=== PATIENT | male | born 1975 | race Caucasian/White ===

== ENCOUNTER 2019-02-02 16:28 | Outpatient (CLI) | payer OTHER ==
--- NOTE | 2019-02-02 18:17 | Ultrasound Report ---
Reason: ANTICOAG MGMT Procedure Date: 02/02/2019 Accession Number: [id number] / [id number] Procedure: US - Duplex Ext Veins Left CPT Code: FULL RESULT: EXAM: LEFT LOWER EXTREMITY VENOUS ULTRASOUND EXAM DATE: 02/02/2019 05:14 PM. CLINICAL HISTORY: Left leg pain. History of popliteal DVT. On Xarelto. COMPARISON: None. TECHNIQUE: Real-time sonographic vascular imaging was performed by the construction driver through the lower extremity utilizing both color-flow and Doppler spectral analysis. Multiple customer contact representative static images were saved for review. FINDINGS: Common Femoral Vein (CFV): Normal. CFV-GSV Junction: Normal. Profunda Femoral Vein (PFV): Normal. Femoral Vein (FV) Prox: Normal. Femoral Vein (FV) Mid: Normal. Femoral Vein (FV) Dist: Normal. Popliteal Vein: Normal. Posterior Tibial Veins: Normal. Peroneal Veins: Normal. Contralateral Side CFV: Normal. Other: None. IMPRESSION: No evidence for deep venous thrombosis. RADIA
== END 2019-02-02 16:29 | disposition home or self-care (01) ==
LOC: DI 16:28
PROVIDERS: ATTEND Internal Medicine
DX: Z79.01 Long term (current) use of anticoagulants (principal)

== ENCOUNTER 2019-10-30 06:58 | Emergency (ER) | payer OTHER ==
[2019-10-30 07:07] VITALS: BP 161/103
--- NOTE | 2019-10-30 07:17 | ED Physician Documentation ---
History of Present Illness - Stated complaint Stated Complaint: BLEEDING FROM MOUTH - Chief complaint Chief Complaint: General - History obtained from History obtained from: Patient, Family - History of Present Illness Timing: Prior to arrival - Additonal information Additional information: Patient with history of clotting disorder and woke up 30 minutes ago with clot in his mouth and blood on pillow. He is on coumadin for past 6 years with a home monitor for his INR, last tested INR 3 weeks ago was 2.9. Still tasting blood. No nosebleed, blood in urine or stool. No excessive bruising. Does have wisdom tooth erupting on left upper ridge. No pain. Has been holding napkin to that area and bleeding has definitely slowed down. Not dizzy. 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 Review of Systems Constitutional: denies: Fever Throat: denies: Dental pain / toothache, Oral lesions / sores Skin: reports: Other (No bruising) PD PAST MEDICAL HISTORY - Past Medical History Cardiovascular: None, Hypertension Respiratory: Asthma, Other Neuro: None Endocrine/Autoimmune: None GI: GERD : None Psych: Anxiety, Panic attacks, Post traumatic stress disorder Musculoskeletal: Chronic back pain Derm: Other - Past Surgical History General: Cholecystectomy - Present Medications Home Medications: Ambulatory Orders Medication Instructions Recorded Confirmed Warfarin Sodium [Coumadin] 10/30/19 - Allergies Allergies/Adverse Reactions: Allergies Allergy/AdvReac Type Severity Reaction Status Date / Time No Known Drug Allergies Allergy Verified 10/30/19 07:04 - Social History Smoking Status: Never smoker PD ED PE NORMAL - Vitals Vital signs reviewed: Yes - General General: Alert and oriented X 3, No acute distress, Well developed/nourished - HEENT HEENT: Atraumatic, PERRL, Moist mucous membranes, Other (L maxillary wisdom tooth erupting and molar ant to that has some blood speckle at gum line. No active bleeding or swelling.) Results - Vitals Vitals: Vital Signs - 24 hr 10/30/19 07:02 Temperature 36.3 C L Heart Rate 107 H Respiratory 18 Rate Blood Pressure 161/103 H O2 Saturation 100 Oxygen O2 Source Room air - Labs Labs: Laboratory Tests 10/30/19 10/30/19 07:25 07:25 WBC 5.5 RBC 4.69 L Hgb 15.1 Hct 44.3 MCV 94.5 H MCH 32.2 H MCHC 34.1 RDW 12.5 Plt Count 216 MPV 10.0 Neut # (Auto) 2.6 Lymph # (Auto) 2.3 Grand # (Auto) 0.5 Eos # (Auto) 0.1 Baso # (Auto) 0.0 Absolute Nucleated RBC 0.00 Nucleated RBC % 0.0 PT 23.5 H INR 2.2 H PD MEDICAL DECISION MAKING - ED course Complexity details: reviewed results, re-evaluated patient, d/w patient, d/w family ED course: INR is 2.2 and his hemoglobin is normal. Discussed results with the patient and on reevaluation he had no further bleeding. He is to be cautious when brushing his teeth and also not eat any foods that might have sharp edges today. Follow-up with the dentist to see if they can elucidate the reason for the bleeding. If the bleeding recurs hold direct pressure and follow-up if the bleeding does not stop. Patient states understanding. Departure - Departure Disposition: 01 Home, Self Care Clinical Impression: Bleeding Condition: Good Instructions: First Aid Bleeding Follow-Up: CHERYL GALLEGOS MD [Primary Care Provider] - Comments: Continue to take your current dosing of Coumadin. Be careful about brushing your teeth vigorously or flossing and avoid foods that have might have sharp edges to irritate the gums. Follow-up with your dentist regarding the bleeding around that molar. If the bleeding recurs apply direct pressure and follow-up if the bleeding is not controlled with the direct pressure.
[2019-10-30 07:33] LABS: BASOPHILS % (AUTO) 0.4 %; EOSINOPHILS # (AUTO) 0.1 10^3/uL (0.0-0.7); EOSINOPHILS % (AUTO) 2.5 %; HGB - HEMOGLOBIN 15.1 g/dL (14.0-18.0); LYMPHOCYTES # (AUTO) 2.3 10^3/uL (1.5-3.5); LYMPHOCYTES % (AUTO) 41.1 %; MEAN CORPUSCULAR HEMOGLOBIN 32.2 pg (27.0-31.0); MEAN CORPUSCULAR HGB CONC 34.1 g/dL (32.0-36.0); MEAN CORPUSCULAR VOLUME 94.5 fL (80.0-94.0); MONOCYTES # (AUTO) 0.5 10^3/uL (0.0-1.0); MONOCYTES % (AUTO) 9.1 %; NEUTROPHILS # (AUTO) 2.6 10^3/uL (1.5-6.6); NEUTROPHILS % (AUTO) 46.5 %; PLT - PLATELET COUNT 216 10^3/uL (130-450); RED BLOOD COUNT 4.69 10^6/uL (4.70-6.10); RED CELL DISTRIBUTION WIDTH 12.5 % (12.0-15.0); WHITE BLOOD COUNT 5.5 x10^3/uL (4.8-10.8)
[2019-10-30 08:07] LABS: INR 2.2 (0.8-1.2); PT - PROTHROMBIN TIME 23.5 secs (9.9-12.6)
== END 2019-10-30 08:44 | disposition home or self-care (01) ==
LOC: ED 06:58
DX: K13.79 Other lesions of oral mucosa (principal); I10 Essential (primary) hypertension; Z79.01 Long term (current) use of anticoagulants
CPT/HCPCS: 36415; 85025; 85610; 99282; 99283

== ENCOUNTER 2020-01-30 08:00 | Outpatient (CLI) | payer OTHER ==
[2020-01-30 12:13] LABS: BASOPHILS % (AUTO) 0.6 %; EOSINOPHILS # (AUTO) 0.1 10^3/uL (0.0-0.7); EOSINOPHILS % (AUTO) 2.1 %; HGB - HEMOGLOBIN 15.3 g/dL (14.0-18.0); LYMPHOCYTES # (AUTO) 1.8 10^3/uL (1.5-3.5); LYMPHOCYTES % (AUTO) 38.4 %; MEAN CORPUSCULAR HEMOGLOBIN 31.6 pg (27.0-31.0); MEAN CORPUSCULAR HGB CONC 33.3 g/dL (32.0-36.0); MEAN CORPUSCULAR VOLUME 94.8 fL (80.0-94.0); MEAN PLATELET VOLUME 10.5 fL (7.4-11.4); MONOCYTES # (AUTO) 0.4 10^3/uL (0.0-1.0); MONOCYTES % (AUTO) 8.2 %; NEUTROPHILS # (AUTO) 2.4 10^3/uL (1.5-6.6); NEUTROPHILS % (AUTO) 50.5 %; PLT - PLATELET COUNT 251 10^3/uL (130-450); RED BLOOD COUNT 4.84 10^6/uL (4.70-6.10); RED CELL DISTRIBUTION WIDTH 12.5 % (12.0-15.0); WHITE BLOOD COUNT 4.7 x10^3/uL (4.8-10.8)
[2020-01-30 12:22] LABS: ALBUMIN 4.3 g/dL (3.2-5.5); ALBUMIN/GLOBULIN RATIO 1.5 (1.0-2.2); CALCIUM 8.9 mg/dL (8.5-10.3); CREATININE 0.8 mg/dL (0.6-1.2); TOTAL PROTEIN 7.1 g/dL (6.7-8.2)
[2020-01-30 12:27] LABS: CHOL/HDL RATIO 4.8 (<5.0); CHOLESTEROL 232 mg/dL; HDL CHOLESTEROL 48 mg/dL; LDL CHOLESTEROL,CALCULATED 157 mg/dL; LDL/HDL RATIO 3.3 (<3.6); VLDL CHOLESTEROL 27 mg/dL
== END 2020-01-30 23:59 | disposition home or self-care (01) ==
LOC: LAB.N 08:00
PROVIDERS: ATTEND Family Medicine
DX: I10 Essential (primary) hypertension (principal); E78.5 Hyperlipidemia, unspecified; R31.9 Hematuria, unspecified
CPT/HCPCS: 36415; 80053; 80061; 83721; 84153; 84443; 85025

== ENCOUNTER 2020-01-30 08:00 | Outpatient (CLI) | payer OTHER ==
[2020-01-30 17:57] LABS: BILIRUBIN,URINE NEGATIVE (NEGATIVE); GLUCOSE, URINE (UA) NEGATIVE (NEGATIVE); KETONES,URINE (UA) NEGATIVE (NEGATIVE); LEUKOCYTE ESTERASE, URINE NEGATIVE (NEGATIVE); NITRITE,URINE NEGATIVE (NEGATIVE); OCCULT BLOOD,URINE TRACE-LYSE (NEGATIVE); PROTEIN,URINE NEGATIVE (NEGATIVE); UROBILINOGEN,URINE 0.2 (NORMAL) E.U./dL (NORMAL)
[2020-01-30 17:58] LABS: CLARITY,URINE CLEAR (CLEAR)
== END 2020-01-30 23:59 | disposition home or self-care (01) ==
LOC: LAB.R 08:00
PROVIDERS: ATTEND Physician Assistant Medical
DX: R31.9 Hematuria, unspecified (principal); I10 Essential (primary) hypertension; E78.5 Hyperlipidemia, unspecified
CPT/HCPCS: 36415; 80053; 80061; 81001; 81003; 84153; 84443; 85025; 87086

== ENCOUNTER 2020-02-08 08:15 | Outpatient (CLI) | payer OTHER | END 2020-02-08 23:59 | disposition home or self-care (01) | LOC: LAB.R 08:15 | PROVIDERS: ATTEND Family Medicine | DX: R31.9 Hematuria, unspecified (principal) | CPT/HCPCS: 87086 ==

== ENCOUNTER 2020-02-21 13:07 | Outpatient (CLI) | payer OTHER ==
[2020-02-21] MEDS ORDERED: IOVERSOL 320 100 ML VIAL IVP ONE ×2 (13:26→15:33)
--- NOTE | 2020-02-22 10:19 | CT Report ---
Reason: HEMATURIA, EPIGASTRIC PAIN Procedure Date: 02/21/2020 Accession Number: [id number] / [id number] Procedure: CT - ABDOMEN/PELVIS W/WO CPT Code: Final Report FULL RESULT: EXAM: CT ABDOMEN AND PELVIS WITHOUT AND WITH CONTRAST (CT IVP) EXAM DATE: 02/21/2020 02:09 PM. CLINICAL HISTORY: Hematuria, epigastric pain. COMPARISONS: None. TECHNIQUE: Routine helical imaging was performed through the kidneys, ureters and bladder in the precontrast, postcontrast and delayed phase. IV Contrast: 100 mL Optiray 320. Reconstructions: Coronal and sagittal. In accordance with CT protocol optimization, one or more of the following dose reduction techniques were utilized for this exam: automated exposure control, adjustment of mA and/or KV based on patient size, or use of iterative reconstructive technique. FINDINGS: Lung Bases: Unremarkable. Liver: Normal. No masses. Gallbladder/Bile Ducts: Previous cholecystectomy. No biliary ductal dilatation identified. Spleen: Normal. Pancreas: Normal. Adrenal Glands: Normal. Kidneys/Bladder: Right Kidney/Ureter: No renal or ureteral stones. No hydronephrosis or hydroureter. No masses. Left Kidney/Ureter: No renal or ureteral stones. No hydronephrosis or hydroureter. No masses. Bladder: No stones. No wall thickening or mass. Peritoneal Cavity/Bowel: Normal. No free fluid, free air or adenopathy. No masses or acute inflammatory process. Pelvic Organs: Visualized pelvic organs are unremarkable. Vasculature: No aneurysms or other significant abnormality. Bones: No significant abnormality. Other: None. IMPRESSION: Normal CT IVP. No urinary tract masses, stones or obstruction. RADIA
== END 2020-02-21 13:08 | disposition home or self-care (01) ==
LOC: DI 13:07
PROVIDERS: ATTEND Family Medicine
DX: R31.9 Hematuria, unspecified (principal); R10.13 Epigastric pain
CPT/HCPCS: 74178; Q9967

== ENCOUNTER 2020-09-25 09:39 | Outpatient (CLI) | payer OTHER ==
[2020-09-25] MEDS ORDERED: IOVERSOL 320 50 ML VIAL ONE (09:52)
[2020-09-25] MEDS ORDERED: IOVERSOL 320 100 ML VIAL IVP ONE (09:52)
[2020-09-25 10:05] LABS: CREATININE 0.9 mg/dL (0.6-1.2)
--- NOTE | 2020-09-25 12:44 | CT Report ---
PROCEDURE: Abdomen/Pelvis W INDICATIONS: RT GROIN PAIN CONTRAST: IV CONTRAST: Optiray 320 ml: 100 PO CONTRAST: Optiray 320 ml50 TECHNIQUE: After the administration of intravenous and oral contrast, 5 mm thick sections acquired from the diap hragms to the symphysis. 5 mm thick coronal and sagittal reformats were acquired. For radiation dos e reduction, the following was used: automated exposure control, adjustment of mA and/or kV accordin g to patient size. COMPARISON: 02/21/2020. FINDINGS: Image quality: Excellent. ABDOMEN: Lung bases: Lung bases are clear. Heart size is normal. Solid organs: Liver and spleen are normal in size and enhancement. Gallbladder has been surgically removed. Biliary system is non dilated. Pancreas enhances normally. No adrenal nodules. Kidneys d emonstrate normal size and enhancement, without hydronephrosis. Peritoneum and bowel: A few scattered colonic diverticula without acute inflammation. Normal appendi x. Bowel loops demonstrate normal wall thickness and caliber. No free fluid or air. Nodes and vessels: No retroperitoneal or mesenteric adenopathy by size criteria. Aorta and inferior vena cava are normal in size. Miscellaneous: No ventral hernias. Small fat-containing umbilical hernia without acute inflammation. PELVIS: Genitourinary: Urinary bladder wall thickness is normal for degree of distention. Reproductive organs appear unremarkable as imaged. Miscellaneous: Very small fat-containing left inguinal hernia without acute inflammation. No pelvic adenopathy. Bones: No suspicious bony lesions. No acute vertebral body compression fractures. IMPRESSION: 1. Very small fat-containing left inguinal hernia without acute inflammation. 2. Small fat-containing umbilical hernia without acute inflammation. 3. Scattered colonic diverticulosis without acute diverticulitis. 4. Status post cholecystectomy. 5. Normal appendix. Reviewed by: Alex Pepper MD on 09/25/2020 12:43 PM PST Approved by: Alex Pepper MD on 09/25/2020 12:43 PM PST Station ID: [id number]
[2020-09-25] MEDS: IOVERSOL 320 50 ML VIAL PO ONE (13:14)
[2020-09-25] MEDS: IOVERSOL 320 100 ML VIAL IVP ONE (13:15)
== END 2020-09-25 09:40 | disposition home or self-care (01) ==
LOC: LAB 09:39 → DI 09:40
PROVIDERS: ATTEND Surgery
DX: R10.31 Right lower quadrant pain (principal); K40.90 Unilateral inguinal hernia, without obstruction or gangrene, not specified as recurrent; K42.9 Umbilical hernia without obstruction or gangrene; K57.30 Diverticulosis of large intestine without perforation or abscess without bleeding; Z90.49 Acquired absence of other specified parts of digestive tract
CPT/HCPCS: 36415; 74177; 82565; Q9967

== ENCOUNTER 2021-06-24 11:32 | Outpatient (CLI) | payer OTHER ==
--- NOTE | 2021-06-24 13:19 | XRAY Report ---
PROCEDURE: Elbow 3 View LT INDICATIONS: L ELBOW PX TECHNIQUE: 3 views of the elbow were acquired. COMPARISON: None FINDINGS: Bones: No fractures or dislocations. No suspicious bony lesions. Soft tissues: No elbow joint effusion. No suspicious soft tissue calcifications. IMPRESSION: No fracture. No osseous lesion. If there are persistent symptoms or continued clinical concern for pa thology, then repeat plain film radiographs (7-10 days) or advanced imaging (CT, MR, bone scan) shoul d be considered for further evaluation. Reviewed by: Marissa Medina MD, PhD on 06/24/2021 1:18 PM PDT Approved by: Marissa Medina MD, PhD on 06/24/2021 1:18 PM PDT Station ID: [id number]
== END 2021-06-24 23:59 | disposition home or self-care (01) ==
LOC: DI.N 11:32
PROVIDERS: ATTEND Family Medicine
DX: M25.522 Pain in left elbow (principal)

== ENCOUNTER 2021-07-12 13:16 | Outpatient (CLI) | payer OTHER ==
--- NOTE | 2021-07-12 19:40 | Ultrasound Report ---
PROCEDURE: Testicle INDICATIONS: RIGHT TESTICULAR PAIN TECHNIQUE: Real-time scanning was performed of the scrotum and testicles, with image documentation. Color and p ulse Doppler interrogation was performed of both testicles. COMPARISON: None. FINDINGS: Right: Testicle is normal in size at 4.7 x 1.6 x 2.9 cm, and homogenous in echotexture. The right ep ididymis and right epididymal tail demonstrates increased vascularity suggestive of epididymitis. The re is a small right hydrocele. Within the testicle there is a 4 mm hypoechoic area which has the appe arance of shadowing. Overlying scrotal skin is normal in thickness. Left: Testicle is normal in size at 4.5 x 1.6 x 2.9 cm, and homogeneous in echotexture. Epididymis is normal in overall size and morphology. The left testicle has a 2 mm calcification. The left epidi dymal head has a cyst. No hydrocele or varicoceles. Overlying scrotal skin is normal in thickness. Doppler: Color and pulse Doppler demonstrate normal and symmetric arterial flow in both testicles. IMPRESSION: 1. Hypervascularity of the right epididymitis and a small right hydrocele with debris consistent with right epididymitis. 2. The right epididymis has a hypoechoic area which measures 4 mm which is indeterminate. This could be shadowing from a calcification, however a neoplasm cannot be completely excluded. Recommend follow -up testicular ultrasound in 1 month after treatment for epididymitis. Reviewed by: Andres Carbajal on 07/12/2021 7:38 PM PDT Approved by: Andres Carbajal on 07/12/2021 7:38 PM PDT Station ID: [id number]
== END 2021-07-12 13:17 | disposition home or self-care (01) ==
LOC: DI 13:16
PROVIDERS: ATTEND Surgery
DX: N45.1 Epididymitis (principal); R93.89 Abnormal findings on diagnostic imaging of other specified body structures

== ENCOUNTER 2021-10-10 08:00 | Outpatient (CLI) | payer OTHER ==
[2021-10-10 12:08] LABS: BASOPHILS % (AUTO) 0.5 %; EOSINOPHILS # (AUTO) 0.1 10^3/uL (0.0-0.7); HCT - HEMATOCRIT 45.5 % (42.0-52.0); HGB - HEMOGLOBIN 15.6 g/dL (14.0-18.0); LYMPHOCYTES % (AUTO) 36.3 %; MEAN CORPUSCULAR HEMOGLOBIN 32.4 pg (27.0-31.0); MEAN CORPUSCULAR HGB CONC 34.3 g/dL (32.0-36.0); MEAN CORPUSCULAR VOLUME 94.4 fL (80.0-94.0); MEAN PLATELET VOLUME 10.3 fL (7.4-11.4); MONOCYTES # (AUTO) 0.5 10^3/uL (0.0-1.0); MONOCYTES % (AUTO) 9.3 %; NEUTROPHILS # (AUTO) 2.8 10^3/uL (1.5-6.6); NEUTROPHILS % (AUTO) 51.7 %; PLT - PLATELET COUNT 248 10^3/uL (130-450); RED BLOOD COUNT 4.82 10^6/uL (4.70-6.10); RED CELL DISTRIBUTION WIDTH 12.1 % (12.0-15.0); WHITE BLOOD COUNT 5.5 x10^3/uL (4.8-10.8)
[2021-10-10 13:05] LABS: THYROID STIMULATING HORMONE 2.61 uIU/mL (0.34-5.60)
[2021-10-10 13:27] LABS: ALBUMIN 4.1 g/dL (3.2-5.5); ALBUMIN/GLOBULIN RATIO 1.3 (1.0-2.2); ALKALINE PHOSPHATASE 61 IU/L (42-121); ALT ALANINE AMINOTRANSFERASE 42 IU/L (10-60); AST ASPARTATE AMINOTRANSFERASE 32 IU/L (10-42); BILIRUBIN,TOTAL 1.1 mg/dL (0.2-1.0); BUN - BLOOD UREA NITROGEN 15 mg/dL (6-20); CALCIUM 9.2 mg/dL (8.5-10.3); CARBON DIOXIDE - CO2 25 mmol/L (21-32); CHLORIDE 101 mmol/L (101-111); CHOL/HDL RATIO 4.7 (<5.0); CHOLESTEROL 255 mg/dL; CREATININE 0.8 mg/dL (0.6-1.2); GFR - MDRD 105 (>89); GLUCOSE 101 mg/dL (70-100); HDL CHOLESTEROL 54 mg/dL; LDL CHOLESTEROL,CALCULATED 161 mg/dL; SODIUM 135 mmol/L (135-145); TOTAL PROTEIN 7.3 g/dL (6.7-8.2); TRIGLYCERIDES 202 mg/dL; VLDL CHOLESTEROL 40 mg/dL
[2021-10-10 14:16] LABS: CRP - C-REACTIVE PROTEIN < 1.0 mg/dL (0-1.0)
[2021-10-10 15:58] LABS: RHEUMATOID FACTOR NEGATIVE (Negative)
[2021-10-12 16:36] LABS: ANA SCREEN NEGATIVE (NEGATIVE)
== END 2021-10-10 23:59 | disposition home or self-care (01) ==
LOC: LAB.WCP 08:00
PROVIDERS: ATTEND Internal Medicine
DX: I10 Essential (primary) hypertension (principal); E78.5 Hyperlipidemia, unspecified; M25.50 Pain in unspecified joint
CPT/HCPCS: 36415; 80053; 80061; 83721; 84443; 85025; 85651; 86038; 86140; 86200; 86430

== ENCOUNTER 2022-08-28 09:18 | Outpatient (CLI) | payer OTHER ==
[2022-08-28 12:00] LABS: BASOPHILS % (AUTO) 0.5 %; EOSINOPHILS # (AUTO) 0.1 10^3/uL (0.0-0.7); EOSINOPHILS % (AUTO) 2.1 %; HCT - HEMATOCRIT 46.8 % (42.0-52.0); MEAN CORPUSCULAR HEMOGLOBIN 32.1 pg (27.0-31.0); MEAN CORPUSCULAR HGB CONC 34.2 g/dL (32.0-36.0); MEAN CORPUSCULAR VOLUME 93.8 fL (80.0-94.0); MEAN PLATELET VOLUME 10.3 fL (7.4-11.4); MONOCYTES # (AUTO) 0.5 10^3/uL (0.0-1.0); MONOCYTES % (AUTO) 7.8 %; NEUTROPHILS # (AUTO) 3.2 10^3/uL (1.5-6.6); NEUTROPHILS % (AUTO) 55.3 %; PLT - PLATELET COUNT 262 10^3/uL (130-450); RED BLOOD COUNT 4.99 10^6/uL (4.70-6.10); RED CELL DISTRIBUTION WIDTH 12.6 % (12.0-15.0); WHITE BLOOD COUNT 5.7 x10^3/uL (4.8-10.8)
[2022-08-28 12:46] LABS: ESTIMATED AVERAGE GLUCOSE 105 mg/dL (70-100); HEMOGLOBIN A1c% 5.3 % (4.27-6.07)
[2022-08-28 12:53] LABS: THYROID STIMULATING HORMONE 2.44 uIU/mL (0.34-5.60)
[2022-08-28 12:58] LABS: ALBUMIN 4.5 g/dL (3.2-5.5); ALBUMIN/GLOBULIN RATIO 1.5 (1.0-2.2); ALKALINE PHOSPHATASE 77 IU/L (42-121); ALT ALANINE AMINOTRANSFERASE 29 IU/L (10-60); AST ASPARTATE AMINOTRANSFERASE 26 IU/L (10-42); BUN - BLOOD UREA NITROGEN 13 mg/dL (6-20); CALCIUM 9.7 mg/dL (8.5-10.3); CARBON DIOXIDE - CO2 30 mmol/L (21-32); CHLORIDE 101 mmol/L (101-111); CHOL/HDL RATIO 5.1 (<5.0); CHOLESTEROL 270 mg/dL; CREATININE 0.8 mg/dL (0.6-1.2); GFR - MDRD 105 (>89); GLUCOSE 99 mg/dL (70-100); HDL CHOLESTEROL 53 mg/dL; LDL CHOLESTEROL,CALCULATED 172 mg/dL; LDL/HDL RATIO 3.2 (<3.6); POTASSIUM 4.6 mmol/L (3.5-5.0); SODIUM 138 mmol/L (135-145); TOTAL PROTEIN 7.5 g/dL (6.7-8.2); TRIGLYCERIDES 226 mg/dL; VLDL CHOLESTEROL 45 mg/dL
== END 2022-08-28 09:19 | disposition home or self-care (01) ==
LOC: LAB.N 09:18
PROVIDERS: ATTEND Internal Medicine
DX: D68.9 Coagulation defect, unspecified (principal); E78.5 Hyperlipidemia, unspecified; R73.01 Impaired fasting glucose; R10.2 Pelvic and perineal pain; F41.9 Anxiety disorder, unspecified
CPT/HCPCS: 36415; 80053; 80061; 83036; 83721; 84153; 84443; 85025

== ENCOUNTER 2022-10-29 01:35 | Emergency (ER) | payer OTHER ==
[2022-10-29] MEDS ORDERED: ACETAMINOPHEN 325 MG TABLET PO STA (02:07)
--- NOTE | 2022-10-29 02:10 | ED Physician Documentation ---
History of Present Illness - Stated complaint Stated Complaint: HEADACHE - Chief complaint Chief Complaint: Neuro - History obtained from History obtained from: Patient - Additonal information Additional information: 47yM with pmh PE on coumadin p/w a couple weeks of constant aching/throbbing gradual onset R sided headache radiating from temporal area to back of neck, improving with tylenol. denies fever, cough, sore throat, fnd. did have some congestion/rhinorrhea recently. Review of Systems Ten Systems: 10 systems reviewed and negative GI: reports: Nausea Neurologic: reports: Headache. denies: Focal weakness, Numbness, Difficulty speaking PD PAST MEDICAL HISTORY - Past Medical History Past Medical History: Yes Cardiovascular: None, Hypertension, Pulmonary embolism Respiratory: Asthma, Other Neuro: None Endocrine/Autoimmune: None GI: GERD : None HEENT: Chronic sinusitis Psych: Anxiety, Panic attacks, Post traumatic stress disorder Musculoskeletal: Chronic back pain Derm: None, Other Other Past Medical History: Venous blood clotting disorder - Past Surgical History Past Surgical History: Yes General: Cholecystectomy, Other Cardiovascular: Cardiac catheterization - Present Medications Home Medications: Ambulatory Orders Medication Instructions Recorded Confirmed Enoxaparin [Lovenox] 120 mg SUBQ Q12H PRN 07/31/21 10/29/22 Fluticasone [Flonase] 1 spray JIE DAILY PRN 07/31/21 10/29/22 Pantoprazole [Protonix] 40 mg PO DAILY 07/31/21 10/29/22 Warfarin [Coumadin] 5 mg PO DAILY 07/31/21 10/29/22 lisinopriL [Zestril] 5 mg PO DAILY 07/31/21 10/29/22 Gabapentin [Gralise] 300 mg PO BID 10/29/22 10/29/22 - Allergies Allergies/Adverse Reactions: Allergies Allergy/AdvReac Type Severity Reaction Status Date / Time No Known Drug Allergies Allergy Verified 10/29/22 01:47 - Social History Does the pt smoke?: No Smoking Status: Never smoker Does the pt drink ETOH?: Yes ETOH Use: Liquor Does the pt have substance abuse?: No - Immunizations Immunizations are current?: Yes - POLST Patient has POLST: No PD ED PE NORMAL - Vitals Vital signs reviewed: Yes - General General: Alert and oriented X 3, No acute distress, Well developed/nourished - HEENT HEENT: Atraumatic, PERRL, EOMI, Moist mucous membranes, Pharynx benign - Neck Neck: Supple, no meningeal sign - Cardiac Cardiac: RRR - Respiratory Respiratory: No respiratory distress, Clear bilaterally - Abdomen Abdomen: Non tender, Non distended - Derm Derm: Normal color, Warm and dry - Extremities Extremities: No deformity - Neuro Neuro: Alert and oriented X 3, access service representative 2-12 intact, No motor deficit, No sensory deficit, Normal speech Eye Opening: Spontaneous Motor: Obeys Commands Verbal: Oriented GCS Score: 15 - Psych Psych: Normal mood, Normal affect Results - Vitals Vitals: Vital Signs - 24 hr 10/29/22 10/29/22 01:39 03:06 Temperature 36.8 C Heart Rate 66 58 L Respiratory 16 16 Rate Blood Pressure 132/87 H O2 Saturation 99 96 Oxygen O2 Source Room air PD Medical Decision Making - ED course ED course: 47yM p/w headache X several weeks. noncontrast CT head ordered. symptomatic care provided. will reassess. ED physician CT head wet read normal. patient sleeping comfortably on reexam. on waking he states headache has resolved. plan to dc home to f/u with pcp. return precautions given. Departure - Departure Disposition: Home, Self Care Clinical Impression: Tension headache Condition: Good Instructions: ED Headache Tension Comments: You are seen in the emergency department for headache. Your CT was normal. Please follow-up with your primary care provider. Return to the emergency department if you have any new or worsening symptoms or other concerns.
[2022-10-29] MEDS ORDERED: KETOROLAC 30 MG/ML VIAL IM STA (03:41)
[2022-10-29 03:43] VITALS: BP 109/74
--- NOTE | 2022-10-29 08:11 | CT Report ---
PROCEDURE: HEAD WO INDICATIONS: headache TECHNIQUE: Noncontrast 4.5 mm thick angled axial sections acquired from the foramen magnum to the vertex. For r adiation dose reduction, the following was used: automated exposure control, adjustment of mA and/or kV according to patient size. COMPARISON: None. FINDINGS: Image quality: Excellent. CSF spaces: Basal cisterns are patent. No extra-axial fluid collections. Ventricles are normal in size and shape. Brain: No midline shift. No intracranial masses or hemorrhage. Cotto-white matter interface is norm al. Skull and face: Calvarium and visualized facial bones are intact, without suspicious lesions. Sinuses: Retention cyst versus polyp is noted in right ethmoid sinus. Rest of the visualized sinuses and mastoids are clear. IMPRESSION: 1. No CT evidence of acute intracranial abnormalities. 2. Right ethmoid sinusitis versus retention cyst or polyp. No discrepancies. Reviewed by: Derick Kessler MD on 10/29/2022 8:09 AM [facility] Approved by: Derick Kessler MD on 10/29/2022 8:09 AM [facility] Station ID: [id number]
== END 2022-10-29 03:53 | disposition home or self-care (01) ==
LOC: ED 01:35
DX: G44.209 Tension-type headache, unspecified, not intractable (principal)
CPT/HCPCS: 70450; 96372; 99282; 99284; A9270

== ENCOUNTER 2023-04-20 15:41 | Emergency (ER) | payer OTHER ==
[2023-04-20] MEDS ORDERED: SODIUM CHLORIDE 0.9% 1,000 ML IV STA (15:59)
[2023-04-20 16:09] LABS: BASOPHILS % (AUTO) 0.3 %; EOSINOPHILS # (AUTO) 0.2 10^3/uL (0.0-0.7); EOSINOPHILS % (AUTO) 1.4 %; HCT - HEMATOCRIT 44.7 % (42.0-52.0); HGB - HEMOGLOBIN 15.2 g/dL (14.0-18.0); LYMPHOCYTES # (AUTO) 1.6 10^3/uL (1.5-3.5); MEAN CORPUSCULAR HEMOGLOBIN 32.1 pg (27.0-31.0); MEAN CORPUSCULAR VOLUME 94.3 fL (80.0-94.0); MEAN PLATELET VOLUME 9.7 fL (7.4-11.4); MONOCYTES % (AUTO) 8.4 %; NEUTROPHILS # (AUTO) 9.3 10^3/uL (1.5-6.6); NEUTROPHILS % (AUTO) 76.6 %; PLT - PLATELET COUNT 254 10^3/uL (130-450); RED BLOOD COUNT 4.74 10^6/uL (4.70-6.10); RED CELL DISTRIBUTION WIDTH 12.1 % (12.0-15.0); WHITE BLOOD COUNT 12.1 x10^3/uL (4.8-10.8)
--- NOTE | 2023-04-20 16:10 | ED Physician Documentation ---
History of Present Illness - Stated complaint Stated Complaint: POST OP PX/FEVER - Chief complaint Chief Complaint: Fever - History obtained from History obtained from: Patient, Family - Additonal information Additional information: 48-year-old male with a history of a PE and clotting disorder, on chronic warfarin, Hypertension, and he recently underwent a bilateral inguinal hernia repair surgery over at [facility] in [place]. He had surgery on April 15. Have been doing well postop for a couple of days and felt like he was having some brain fog and felt chilled. He rested for couple days and yesterday had a little bit of increased activity due to Father's Day but nothing strenuous. Today hefelt some increased soreness in the inguinal area bilaterally, but attributed it to increased activity yesterday. He required more assistance getting off the couch according to . He just continued to not feel great so he took his temperature today and stated that it was 102. He took a gram of Tylenol about an hour prior to arrival and came to the ER. He states he has not had any cough or URI symptoms, no chest pain or difficulty breathing, no nausea, vomiting, Or constipation. He does have some loose stools but states he is on stool softeners due to the narcotics. He denies any dysuria urgency or frequency, no flank pain. He is on a Lovenox bridge but has restarted his Couma din, restarted 2 days ago. PD PAST MEDICAL HISTORY - Past Medical History Past Medical History: Yes Cardiovascular: None, Hypertension, Pulmonary embolism Respiratory: Asthma, Other Neuro: None Endocrine/Autoimmune: None GI: GERD : None HEENT: Chronic sinusitis Psych: Anxiety, Panic attacks, Post traumatic stress disorder Musculoskeletal: Chronic back pain Derm: None, Other - Past Surgical History Past Surgical History: Yes General: Cholecystectomy, Other Cardiovascular: Cardiac catheterization - Present Medications Home Medications: Ambulatory Orders Medication Instructions Recorded Confirmed Enoxaparin [Lovenox] 120 mg SUBQ Q12H PRN 07/31/21 04/20/23 Fluticasone [Flonase] 1 spray JIE DAILY PRN 07/31/21 04/20/23 Pantoprazole [Protonix] 40 mg PO DAILY 07/31/21 04/20/23 Warfarin [Coumadin] 5 mg PO DAILY 07/31/21 04/20/23 lisinopriL [Zestril] 5 mg PO DAILY 07/31/21 04/20/23 Gabapentin [Gralise] 300 mg PO BID 10/29/22 04/20/23 Senna [Senokot] 8.6 mg PO DAILY 04/20/23 04/20/23 cephALEXin [Keflex] 500 mg PO Q6H #28 cap 04/20/23 oxyCODONE [Roxicodone] 5 mg PO Q6HR PRN 04/20/23 04/20/23 polyethylene glycoL 3350 [Miralax] 17 gm PO BID 04/20/23 04/20/23 - Allergies Allergies/Adverse Reactions: Allergies Allergy/AdvReac Type Severity Reaction Status Date / Time No Known Drug Allergies Allergy Verified 04/20/23 15:43 - Social History Does the pt smoke?: No Smoking Status: Never smoker Does the pt drink ETOH?: Yes Does the pt have substance abuse?: No - Immunizations Immunizations are current?: Yes - POLST Patient has POLST: No PD ED PE NORMAL - Vitals Vital signs reviewed: Yes - General General: Alert and oriented X 3, No acute distress, Well developed/nourished - HEENT HEENT: Atraumatic, Moist mucous membranes, Pharynx benign - Neck Neck: Supple, no meningeal sign, No JVD - Cardiac Cardiac: RRR, No murmur, No gallop, No rub - Respiratory Respiratory: No respiratory distress, Clear bilaterally - Abdomen Abdomen: Normal bowel sounds, Other (Bruising across the lower abdomen at site of Lovenox shots, there are 3 lap sites across the mid abdomen that have Steri- Strips on them, there is generalized tenderness around these but no erythema or swelling, no palpable abscess. There is significant tenderness in the inguinal region bilaterally ) - Back Back: No CVA TTP, No spinal TTP - Derm Derm: Normal color, Warm and dry, No rash, Other (Ecchymosis to abdomen) - Extremities Extremities: No deformity, No edema - Neuro Neuro: Alert and oriented X 3 Eye Opening: Spontaneous Motor: Obeys Commands Verbal: Oriented GCS Score: 15 - Psych Psych: Normal mood, Normal affect Results - Vitals Vitals: Vital Signs - 24 hr 04/20/23 04/20/23 15:43 16:52 Temperature 37.7 C Heart Rate 115 H 102 H Respiratory 18 20 Rate Blood Pressure 130/84 H 139/88 H O2 Saturation 98 98 Oxygen O2 Source Room air - Labs Labs: Laboratory Tests 04/20/23 04/20/23 04/20/23 16:01 16:01 16:01 WBC 12.1 H RBC 4.74 Hgb 15.2 Hct 44.7 MCV 94.3 H MCH 32.1 H MCHC 34.0 RDW 12.1 Plt Count 254 MPV 9.7 Neut # (Auto) 9.3 H Lymph # (Auto) 1.6 [place] # (Auto) 1.0 Eos # (Auto) 0.2 Baso # (Auto) 0.0 Absolute Nucleated RBC 0.00 Nucleated RBC % 0.0 PT 12.3 INR 1.1 Sodium 136 Potassium 4.0 Chloride 101 Carbon Dioxide 28 Anion Gap 7.0 BUN 10 Creatinine 0.8 Estimated GFR (MDRD) 104 Glucose 126 H Lactic Acid Calcium 9.0 Total Bilirubin 0.7 AST 85 H ALT 138 H Alkaline Phosphatase 137 H Total Protein 7.3 Albumin 3.8 Globulin 3.5 Albumin/Globulin Ratio 1.1 Urine Color Urine Clarity Urine pH Ur Specific [place] Urine Protein Urine Glucose (UA) Urine Ketones Urine Occult Blood Urine Nitrite Urine Bilirubin Urine Urobilinogen Ur Leukocyte Esterase Urine RBC Urine WBC Ur Squamous Epith Cells Urine Bacteria Urine Culture Comments 04/20/23 04/20/23 16:23 16:36 WBC RBC Hgb Hct MCV MCH MCHC RDW Plt Count MPV Neut # (Auto) Lymph # (Auto) [place] # (Auto) Eos # (Auto) Baso # (Auto) Absolute Nucleated RBC Nucleated RBC % PT INR Sodium Potassium Chloride Carbon Dioxide Anion Gap BUN Creatinine Estimated GFR (MDRD) Glucose Lactic Acid 1.2 Calcium Total Bilirubin AST ALT Alkaline Phosphatase Total Protein Albumin Globulin Albumin/Globulin Ratio Urine Color YELLOW Urine Clarity CLEAR Urine pH 6.5 Ur Specific [place] <=1.005 Urine Protein NEGATIVE Urine Glucose (UA) NEGATIVE Urine Ketones NEGATIVE Urine Occult Blood NEGATIVE Urine Nitrite NEGATIVE Urine Bilirubin NEGATIVE Urine Urobilinogen 0.2 (NORMAL) Ur Leukocyte Esterase NEGATIVE Urine RBC None Seen Urine WBC 0-3 Ur Squamous Epith Cells NONE SEEN Urine Bacteria None Seen Urine Culture Comments NOT INDICATED - Rads (name of study) No standard instances Relevant Findings:: Final report received PD Medical Decision Making - ED course Complexity details: reviewed old records, reviewed results, re-evaluated patient, considered differential, d/w patient, d/w family ED course: 48-year-old male who presented with fever and generally feeling unwell for the last several days. He is 5 days post bilateral inguinal hernia repair. He has been giving himself subcutaneous injections of Lovenox perioperatively while bridging to Coumadin. On exam today, the patient is well-appearing though in the tachycardic, afebrile here though had antipyretics prior to arrival and reported a fever at home. He has some generalized abdominal tenderness post inguinal hernia repair however incisions appear to be healing well. There was concern for possible postoperative abscess or other postoperative infection and obtain a sepsis work-up given patient's tachycardia and reported fever. He does have a mild leukocytosis at 12.1, and mild elevation in his LFTs however his other labs are stable. His urinalysis is negative for infection. Chest x-ray is negative. He was given 1 L of IV fluids However lactate is normal and he has not been hypotensive here therefore additional fluid Resuscitation not indicated. There were no other obvious sources of infection therefore did proceed with a CT scan to evaluate for possible postoperative abscess or other signs of infection and this does show some subcutaneous fat stranding consistent with cellulitis but no focal fluid collection or drainable abscess. I therefore started patient on ceftriaxone, 2 g, IV. He is well-appearing with otherwise fairly stable labs and vital signs therefore I do think he is safe for dismissal home and will continue Keflex 4 times a day at home to treat cellulitis. He was given strict return precautions however if he had increasing pain, persistent fever, nausea and vomiting and unable to tolerate p.o. or other new concerns. Patient does have some mild elevation in his LFTs which can be due to the infection and recent surgery, he does not have any signs of acute cholecystitis or other infection on physical exam or CT scan. Therefore was advised to follow-up with his PCP to trend his LFTs. Departure - Departure Disposition: 01 Home, Self Care Clinical Impression: Abdominal wall cellulitis, Elevated liver enzymes Condition: Good Instructions: Cellulitis Dc Prescriptions: cephALEXin [Keflex] 500 mg PO Q6H #28 cap Comments: Your CT scan showed signs of infection under the skin called a cellulitis. This may be due to surgery or possibly due to the subcutaneous injections that you have been giving. We treat this with antibiotics, you received a full dose of antibiotics here in the ER today and can start the oral antibiotics tomorrow morning. You may take Tylenol as needed for pain or fever. Symptoms should improve relatively quickly once on antibiotics so if you are not having significant improvement in the next 2 to 3 days or if it anytime you are having worsening symptoms, please return to the ER.
[2023-04-20] MEDS ORDERED: iohexoL-300 100 ML VIAL ONE (16:16)
--- NOTE | 2023-04-20 16:19 | XRAY Report ---
PROCEDURE: Chest 1 View X-Ray INDICATIONS: Sepsis TECHNIQUE: One view of the chest was acquired. COMPARISON: None. FINDINGS: Surgical changes and devices: None. Lungs and pleura: No pleural effusions or pneumothorax. Lungs are clear. Mediastinum: Mediastinal contours appear normal. Heart size is normal. Bones and chest wall: No suspicious bony lesions. Overlying soft tissues appear unremarkable. IMPRESSION: No acute cardiopulmonary process. Reviewed by: Lyly Lovelace MD on 04/20/2023 4:18 PM PDT Approved by: Lyly Lovelace MD on 04/20/2023 4:18 PM PDT Station ID: [id number]
[2023-04-20 16:24] LABS: ALBUMIN 3.8 g/dL (3.2-5.5); ALBUMIN/GLOBULIN RATIO 1.1 (1.0-2.2); BILIRUBIN,TOTAL 0.7 mg/dL (0.2-1.0); CREATININE 0.8 mg/dL (0.6-1.2); TOTAL PROTEIN 7.3 g/dL (6.7-8.2)
[2023-04-20 16:30] LABS: INR 1.1 (0.8-1.2); PT - PROTHROMBIN TIME 12.3 secs (9.9-12.6)
[2023-04-20] MEDS ORDERED: iohexoL-300 100 ML VIAL IVP ONE (16:47)
[2023-04-20 16:50] LABS: BILIRUBIN,URINE NEGATIVE (NEGATIVE); GLUCOSE, URINE (UA) NEGATIVE (NEGATIVE); KETONES,URINE (UA) NEGATIVE (NEGATIVE); LEUKOCYTE ESTERASE, URINE NEGATIVE (NEGATIVE); NITRITE,URINE NEGATIVE (NEGATIVE); OCCULT BLOOD,URINE NEGATIVE (NEGATIVE); PH,URINE 6.5 PH (5.0-7.5); PROTEIN,URINE NEGATIVE (NEGATIVE); UROBILINOGEN,URINE 0.2 (NORMAL) E.U./dL (NORMAL)
--- NOTE | 2023-04-20 16:56 | CT Report ---
PROCEDURE: ABDOMEN/PELVIS W INDICATIONS: post op hernia repair concern for infection CONTRAST: 100mL Omni 300 TECHNIQUE: After the administration of IV contrast, 5 mm thick sections acquired from the diaphragms to the symp hysis. 5 mm thick coronal and sagittal reformats were acquired. For radiation dose reduction, the f ollowing was used: automated exposure control, adjustment of mA and/or kV according to patient size. COMPARISON: CT of abdomen and pelvis dated 09/25/2020 FINDINGS: Image quality: Excellent. Lung bases and heart: Dependent atelectasis/scarring in posterior lateral periphery of bilateral lung bases are seen. Heart size is normal, no pericardial effusion.. Liver: No solid mass. Mild to moderate hepatic steatosis is seen, no discrete hepatic lesion. Gallbladder and biliary tree: Gallbladder is surgically absent. No biliary ductal dilatation. Spleen: No splenomegaly. Pancreas: No pancreatic ductal dilation. Adrenals: No adrenal nodule. Kidneys and ureters: No hydronephrosis. No renal cystic lesion which requires follow up. No solid mas s. Bowel and peritoneum: No bowel distension. No pathologic free fluid. No peritoneal free air. Lymph nodes: No central or retroperitoneal adenopathy. Vessels: No infrarenal aortic aneurysm. PELVIS Reproductive organs: Unremarkable. Bladder: No abnormal wall thickening, accounting for underdistension. Pelvic lymph nodes: No pelvic adenopathy by size criteria. Bones: No aggressive osseous abnormality. Other: Small bowel wall hernia is seen containing fat only. Multiple areas of subcutaneous emphysema with adjacent fat stranding most notably involving midline and left anterior abdominal wall series 3 image 55. No significant inguinal hernia. IMPRESSION: 1. Multiple areas of subcutaneous emphysema involving anterior abdominal wall likely represent prior subcutaneous injection. There are areas of subcutaneous fat stranding adjacent to the subcutaneous em physema particularly in left anterior abdominal wall and midline anterior abdominal wall suggestive o f cellulitis. No discrete drainable abscess collection. 2. No peritoneal free fluid of free air. No bowel obstruction or abnormal bowel wall thickening. No a bscess collection. 3. Hepatic steatosis, no discrete hepatic lesion. 4. Bibasilar dependent atelectasis. Reviewed by: Derick Kessler MD on 04/20/2023 4:55 PM PDT Approved by: Derick Kessler MD on 04/20/2023 4:55 PM PDT Station ID: [id number]
[2023-04-20 16:59] LABS: CLARITY,URINE CLEAR (CLEAR)
[2023-04-20 17:00] LABS: BACTERIA,URINE None Seen /HPF (None Seen); RBC,URINE None Seen /HPF (0-5); SQUAMOUS EPITHELIAL CELL,UR NONE SEEN (<= Few); WBC,URINE 0-3 /HPF (0-3)
[2023-04-20] MEDS ORDERED: cefTRIAXone 2 GM in SODIUM CHLORIDE 0.9% MINIBAG 100 ML IV STA (17:04)
[2023-04-20 18:02] VITALS: BP 132/63
== END 2023-04-20 18:16 | disposition home or self-care (01) ==
LOC: ED 15:41
DX: L03.311 Cellulitis of abdominal wall (principal); R74.01 Elevation of levels of liver transaminase levels
CPT/HCPCS: 36415; 71045; 74177; 80053; 81001; 83605; 85025; 85610; 87040; 93005; 96365; 99284; Q9967; 87086

== ENCOUNTER 2024-06-13 08:29 | Emergency (ER) | payer OTHER ==
--- NOTE | 2024-06-13 09:16 | ED Physician Documentation ---
History of Present Illness - Stated complaint Stated Complaint: LOWER BACK PX - Chief complaint Chief Complaint: Back Pain - History obtained from History obtained from: Patient - Additonal information Additional information: The patient comes to the emergency department with chief complaint of low back pain that has shifted from [id number] over the last several days. He states he got a massage which seemed to irritate his back which is unusual, but then he was walking on some uneven [place] and stumbled forward, twisting to keep from falling down. He states he felt the pain in the right side of the back at that time but then it seemed to be more to the left side and into both buttocks. The patient states that he does not have any numbness and tingling in his lower legs. No difficulty controlling bowels or bladder. He is able to walk, but stiffly. 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 PD PAST MEDICAL HISTORY - Past Medical History Cardiovascular: None, Hypertension, Pulmonary embolism Respiratory: Asthma, Other Neuro: None Endocrine/Autoimmune: None GI: GERD : None HEENT: Chronic sinusitis Psych: Anxiety, Panic attacks, Post traumatic stress disorder Musculoskeletal: Chronic back pain Derm: None, Other - Past Surgical History Past Surgical History: Yes General: Cholecystectomy, Other Cardiovascular: Cardiac catheterization - Present Medications Home Medications: Ambulatory Orders Medication Instructions Recorded Confirmed Fluticasone [Flonase] 1 spray JIE DAILY PRN 07/31/21 06/13/24 Pantoprazole [Protonix] 40 mg PO DAILY 07/31/21 06/13/24 Warfarin [Coumadin] 5 mg PO DAILY 07/31/21 06/13/24 lisinopriL [Zestril] 5 mg PO DAILY 07/31/21 06/13/24 Gabapentin [Gralise] 300 mg PO BID 10/29/22 06/13/24 Senna [Senokot] 8.6 mg PO DAILY 04/20/23 06/13/24 Cyclobenzaprine [Flexeril] 1 tab PO PRN PRN 06/13/24 06/13/24 predniSONE [Deltasone] 10 mg PO [id number] #42 tab 06/13/24 - Allergies Allergies/Adverse Reactions: Allergies Allergy/AdvReac Type Severity Reaction Status Date / Time No Known Drug Allergies Allergy Verified 06/13/24 08:49 - Social History Does the pt smoke?: No Smoking Status: Never smoker Does the pt drink ETOH?: Yes Does the pt have substance abuse?: No - Immunizations Immunizations are current?: Yes - POLST Patient has POLST: No PD ED PE NORMAL - Vitals Vital signs reviewed: Yes - General General: Alert and oriented X 3, No acute distress, Well developed/nourished - HEENT HEENT: Atraumatic, EOMI, Moist mucous membranes - Neck Neck: Supple, no meningeal sign - Cardiac Cardiac: RRR, No murmur - Respiratory Respiratory: No respiratory distress, Clear bilaterally - Abdomen Abdomen: Soft, Non tender, Non distended - Back Back: No spinal TTP, Other (Tenderness to palpation bilateral lumbar paraspinal musculature and bilateral sciatic joints.) - Derm Derm: Normal color, Warm and dry, No rash - Extremities Extremities: No deformity, No edema, No calf tenderness / cord - Neuro Neuro: Alert and oriented X 3 - Psych Psych: Normal mood, Normal affect Results - Vitals Vitals: Oxygen O2 Source Room air PD Medical Decision Making - ED course Complexity details: considered differential, d/w patient ED course: I discussed with the patient that his symptoms sound most consistent with a muscular source. He was treated symptomatically in the emergency department is found to be feeling better. I have given him some days off work and symptomatic meds patient is stable for discharge home. No evidence of emergent cause or complication of back pain. Departure - Departure Disposition: 01 Home, Self Care Clinical Impression: Lumbar strain Qualifiers: Encounter type: initial encounter Qualified Code(s): S39.012A - Strain of muscle, fascia and tendon of lower back, initial encounter Condition: Stable Instructions: ED Sprain Strain Lumbar Prescriptions: predniSONE [Deltasone] 10 mg PO [id number] #42 tab Comments: The description of the onset of pain and the injuries indicates you have most likely strained the soft tissues of your back. Given your underlying chronic issues, this is most likely resulted in a spasm, which can create pressure on the nerves and cause numbness in your legs. You have good control of your bowels and bladder and you have good strength in your legs and there is no evidence of a spinal cord compression at this time. We do not have MRI available today but this is also not the type of situation that calls for emergent MRI. As we discussed, it would be best to call your primary doctor to set up an appointment to have a follow-up MRI. We have discussed various medications to help you and a prescription for a steroid taper has been electronically transmitted to the [facility] pharmacy in [place]. Please pick that up and begin taking today. You may also use your gabapentin, Flexeril, and pain medication as needed. Forms: Activity restrictions Discharge Date/Time: 06/13/24 09:36
[2024-06-13 09:38] VITALS: BP 134/84; O2SAT 100
== END 2024-06-13 09:36 | disposition home or self-care (01) ==
LOC: ED 08:29
DX: S39.012A Strain of muscle, fascia and tendon of lower back, initial encounter (principal); W18.41XA Slipping, tripping and stumbling without falling due to stepping on object, initial encounter; Y93.01 Activity, walking, marching and hiking; Y92.832 Beach as the place of occurrence of the external cause
CPT/HCPCS: 99282; 99283